=== PATIENT | female | born 1985 | race African-American/Black ===

== ENCOUNTER 2017-12-01 19:50 | Emergency (ER) | payer MEDICAID ==
[~2017-12-01] VITALS: Ht 175.3 cm; Wt 115.0 kg
[2017-12-02] MEDS ORDERED: PENICILLIN G BENZATHINE 2,400,000 UNITS/4ML SYR IM ONE (01:30)
[2017-12-02 01:48] LABS: CLARITY URINE TURBID (CLEAR); COLOR URINE YELLOW (YELLOW); KETONES URINE NEGATIVE (NEGATIVE); LEUKOCYTE ESTERASE URINE 2+ (NEGATIVE); NITRITE URINE NEGATIVE (NEGATIVE); OCCULT BLOOD URINE NEGATIVE (NEGATIVE); PH URINE 5.5 (4.5-8.0); PROTEIN URINE NEGATIVE (NEGATIVE)
[2017-12-02 02:57] VITALS: BP 145/82
== END 2017-12-02 03:01 | disposition home or self-care (01) ==
LOC: ER 20:22
DX: A51.49 Other secondary syphilitic conditions (principal); F17.200 Nicotine dependence, unspecified, uncomplicated
CPT/HCPCS: 81001; 81025; 86592; 86593; 86780; 96372; 99284; J0561

== ENCOUNTER 2017-12-13 09:50 | Emergency (ER) | payer MEDICAID ==
[~2017-12-13] VITALS: Ht 175.3 cm; Wt 109.0 kg
[2017-12-13 11:35] VITALS: BP 149/85
== END 2017-12-13 13:23 | disposition home or self-care (01) ==
LOC: ER 11:49
DX: A53.9 Syphilis, unspecified (principal); F17.200 Nicotine dependence, unspecified, uncomplicated; Z98.890 Other specified postprocedural states
CPT/HCPCS: 99283

== ENCOUNTER 2022-08-14 21:33 | Emergency (ER) | payer MEDICAID ==
[~2022-08-14] VITALS: Ht 175.3 cm; Wt 131.6 kg
[2022-08-15] MEDS ORDERED: KETOROLAC 60MG/2ML VIAL IM ONE (02:00)
[2022-08-15 03:30] VITALS: BP 130/50
[2022-08-15] MEDS ORDERED: NAPR-681 MT (03:37)
== END 2022-08-15 03:46 | disposition home or self-care (01) ==
LOC: ER 22:35
DX: M17.9 Osteoarthritis of knee, unspecified (principal); Z98.890 Other specified postprocedural states
CPT/HCPCS: 73562; 81025; 96372; 99283; J1885

== ENCOUNTER 2024-12-13 23:36 | Emergency (ER) | payer MEDICAID ==
[~2024-12-13] VITALS: Ht 167.6 cm; Wt 102.0 kg
[~2024-12-13 23:36] MED LIST: NAPR-681 MT
[2024-12-13 23:46] VITALS: BP 151/86; PULSE 129; RESP 18; TEMP 36.9; O2SAT 100; O2SAT 98
[2024-12-13] MEDS ORDERED: OFLO5DRO4 EACH EAR (23:51)
== END 2024-12-14 00:02 | disposition home or self-care (01) ==
LOC: ER 23:55
DX: H60.8X2 Other otitis externa, left ear (principal); F10.90 Alcohol use, unspecified, uncomplicated; Z98.890 Other specified postprocedural states; Z79.1 Long term (current) use of non-steroidal anti-inflammatories (NSAID); Y90.9 Presence of alcohol in blood, level not specified
CPT/HCPCS: 99283